=== PATIENT | male | born 1935 | race Caucasian/White ===

== ENCOUNTER 2018-03-30 09:01 | Inpatient (IN) | payer OTHER ==
[2018-03-30 09:09] VITALS: BMI 33.3
--- NOTE | 2018-03-30 09:33 | PDOC ---
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 Marie. The patient states he has been seeing his bunch maker hand periodically after his amputations for complaints of pain and during a recent appointment had an MRI ordered which eventually revealed soft tissue swelling of the 1st metatarsal with small subchondral cystic focus with edema of the marrow consistent for osteomyelitis. The patient denies chest pain, shortness of breath, headache and dizziness. The patient denies fever, chills, nausea, vomit, diarrhea and constipation. The patient denies dysuria, frequency, urgency and hematuria. Allergies: penicillins Past surgical history: right toe amputation 1-3 Social history: denies toxic habits PCP - Dr. Jac Jerry Text Transcriber: Dr. Marie <Evangelina Vasques - Last Filed: 03/30/18 13:00> - General Chief Complaint: Wound Stated Complaint: SENT BY PCP Time Seen by Provider: 03/30/18 09:31 Past History <Dinorah Page - Last Filed: 03/30/18 11:53> - Past Medical History Anemia: No Asthma: No Cancer: No Cardiac Disorders: No CVA: No COPD: No CHF: No Dementia: No Diabetes: No GI Disorders: No Disorders: No HTN: Yes Hypercholesterolemia: Yes Liver Disease: No Seizures: No Thyroid Disease: No - Surgical History Abdominal Surgery: No Appendectomy: No Cardiac Surgery: No Cholecystectomy: No Lung Surgery: No Neurologic Surgery: No Orthopedic Surgery: No - Suicide/Smoking/Psychosocial Hx Smoking History: Never smoked Have you smoked in the past 12 months: No <Evangelina Vasques - Last Filed: 03/30/18 13:00> - Past Medical History Allergies/Adverse Reactions: Allergies Allergy/AdvReac Type Severity Reaction Status Date / Time Penicillins Allergy Verified 03/30/18 09:08 Home Medications: Ambulatory Orders Aspirin [ASA -] 81 mg PO DAILY 03/30/18 Brimonidine Tartrate/Timolol [Combigan Eye Drops] 1 drop OU BID 03/30/18 Valsartan 160 mg PO DAILY 03/30/18 Review of Systems - Review of Systems Able to Perform ROS?: Yes Comments:: 03/30/18 10:21 Constitutional: no fevers or chills. HEENT: no headache or dizziness. CVS: no cp or syncope. Resp: no sob. Abdomen: no abdominal pain, nausea or vomiting. MUSCULOSKELETAL: (+) right foot pain and infection. No joint swelling. No neck or back pain. SKIN: no discharge, no rash. +chronic wound/pain and erythema over right forefoot. Hematologic: no easy bruising/bleeding. NEUROLOGIC: No weakness, numbness or tingling. All other systems reviewed and negative, or as documented in HPI. <Evangelina Vasques - Last Filed: 03/30/18 13:00> *Physical Exam - Vital Signs Last Vital Signs Temp Pulse Resp BP Pulse Ox 98.4 F 76 18 151/93 95 03/30/18 09:06 03/30/18 09:06 03/30/18 09:06 03/30/18 09:06 03/30/18 09:06 <Dinorah Page - Last Filed: 03/30/18 11:53> - Vital Signs Last Vital Signs Temp Pulse Resp BP Pulse Ox 98.4 F 76 18 151/93 95 03/30/18 09:06 03/30/18 09:06 03/30/18 09:06 03/30/18 09:06 03/30/18 09:06 - Physical Exam Comments: 03/30/18 10:20 General: Well appearing, awake and alert, NAD. HEENT: NCAT, PERRL, EOMI, clear conjunctiva, anicteric, moist mucus membranes, clear oropharynx, no oral lesions.. Neck: neck supple, FROM Resp: CTAB, normal and even respirations, no respiratory distress CVS: RRR, no murmurs, 2+ peripheral pulses throughout, no peripheral edema Abdomen: soft, NTND, no peritoneal signs. Back: nontender, normal inspection and ROM MSK: (+) right forefoot amputation of digits #1-3. Callus x2 to dorsal aspect of right foot without drainage.. Erythematous, nontender, no increased warmth. no edema, MCKEON x4, ROM intact. No clubbing or cyanosis. normal bulk and tone. Neuro: alert, oriented appropriately; no focal neurologic deficits. SILT, 5/5 distal and prox strength in all extrem. 5/5 plantar and dorsiflexion. Skin: warm and well perfused, 2+ DP pulses. cap refill <2 sec, normal color. + mild erythema to distal right forefoot, nontender and no drainage. <Evangelina Vasques - Last Filed: 03/30/18 13:00> Heart Score/ECG Review - ECG Impressions Comment:: 03/30/18 11:00 EKG normal sinus rhythm, no interval abnormalities, narrow QRS, ST and T wave segments and morphology normal. Nonspecific T wave abnormalities in III, no contiguous lead changes <Evangelina Vasques - Last Filed: 03/30/18 13:00> ED Treatment Course - LABORATORY CBC & Chemistry Diagram: 03/30/18 10:09 03/30/18 10:05 - ADDITIONAL ORDERS Additional order review: Laboratory Results 03/30/18 03/30/18 10:05 10:05 PT with INR 11.80 INR 1.04 Sodium 139 Potassium 4.1 Chloride 105 Carbon Dioxide 27 Anion Gap 7 L BUN 16 Creatinine 0.8 Creat Clearance w eGFR > 60 Random Glucose 98 Calcium 8.9 Total Bilirubin 0.9 AST 13 L ALT 21 Alkaline Phosphatase 88 C-Reactive Protein 0.6 H Total Protein 6.7 Albumin 3.6 03/30/18 10:09 RBC 5.30 MCV 91.4 MCHC 33.6 RDW 14.3 MPV 8.4 Neutrophils % 72.8 Lymphocytes % 15.1 D Monocytes % 8.9 Eosinophils % 2.7 Basophils % 0.5 - Medications Given in the ED: ED Medications Discontinued Medications Generic Name Dose Route Start Last Admin Trade Name Freq PRN Reason Stop Dose Admin Cefepime HCl 2 gm in 50 mls @ 100 mls/hr 03/30/18 10:02 03/30/18 10:21 Maxipime 2gm Ivpb (Premix) IVPB 03/30/18 10:31 100 mls/hr ONCE ONE Administration Protocol Vancomycin HCl 2,000 mg/ 250 mls @ 250 mls/2 hr 03/30/18 10:03 03/30/18 11:15 Dextrose IVPB 03/30/18 12:02 Not Given ONCE ONE Protocol <Dinorah Page - Last Filed: 03/30/18 11:53> - LABORATORY CBC & Chemistry Diagram: 03/30/18 10:09 03/30/18 10:05 <Evangelina Vasques - Last Filed: 03/30/18 13:00> Medical Decision Making - Medical Decision Making 03/30/18 09:32 I, Evangelina Vasques MD, attest that this document has been prepared under my direction and personally reviewed by me in its entirety. I further attest, that it accurately reflects all work, treatment, procedures and medical decision -making performed by me. HERNANDEZ 82 YOM with HTN, constipation, prostate ca and chronic incontinence, Right forefoot amputation x many years ago presenting with right foot/toe osteomyelitis; primary bunch maker hand Dr. Marie. +intermittent foot pain x long time, no fever or chills or purulence/drainage. Vital signs reviewed, wnl. Well appearing and no pain/asymptomatic. Infection Plan: CBC, CMP, coags, blood cx, ECG, CXR, XR rt foot. IV abx cefepime 2g and vancomycin 2g for MRI diagnosis of osteomyelitis. Prior notes reviewed, including admissions, discharges and consultations. laboratory results and imaging reviewed, basic labs and lytes wnl, ESR/CRP pending, CRP normal which is reassuring. Cultures pending, will need bone biopsy per specialist as inpatient. EKG normal sinus rhythm, no interval abnormalities, narrow QRS, ST and T wave segments and morphology normal. Nonspecific T wave abnormalities in III, no contiguous lead changes Dispo: Admit to hospitalist for osteomyelitis, ID and podiatry consult as inpatient, started broad spec abx for osteomyelitis/foot cellulitis (cefepime/ vancomycin), narrow once bone cultures obtained. Inpatient podiatry/ID consultation. Discussed results and management plan with pt at bedside, agree with impression and plan. admit to Dr. Razo, discussed case and agree with plan 03/30/18 11:05 03/30/18 12:58 <Evangelina Vasques - Last Filed: 03/30/18 13:00> *DC/Admit/Observation/Transfer <Dinorah Page - Last Filed: 03/30/18 11:53> - Discharge Dispostion Decision to Admit order: Yes Decision to Admit order Date/Time: 03/30/18 11:04 Decision to Admit Order Category Date Time Status Decision to Admit to Hospital Routine Admission 03/30/18 10:23 Active <Evangelina Vasques - Last Filed: 03/30/18 13:00> Diagnosis at time of Disposition: Foot osteomyelitis, right - Discharge Dispostion Condition at time of disposition: Good
[2018-03-30] MEDS ORDERED: CEFEPIME HCL/D5W 2 GM/50 ML BAG IVPB ONE (10:02)
[2018-03-30] MEDS ORDERED: VANCOMYCIN 2,000 MG in DEXTROSE 5%-WATER - 250 ML IVPB ONE (10:03)
[2018-03-30] MEDS ORDERED: CEFEPIME 2 GM/100 ML BAG IVPB ONE (10:11)
[2018-03-30] MEDS ORDERED: VANCOMYCIN 2,000 MG in DEXTROSE 5%-WATER - 500 ML IVPB ONE (10:18)
[2018-03-30 10:25] LABS: BASO % 0.5 % (0-2.0); EOS % 2.7 % (0-4.5); HEMATOCRIT 48.4 % (35.4-49); HEMOGLOBIN 16.3 GM/dL (11.7-16.9); LYMPH % 15.1 % (8-40); MCH 30.7 pg (25.7-33.7); MCHC 33.6 g/dl (32.0-35.9); MEAN CELL VOLUME 91.4 fl (80-96); MEAN PLT VOLUME 8.4 fl (7.5-11.1); MONO % 8.9 % (3.8-10.2); NEUT % 72.8 % (42.8-82.8); PLATELET COUNT 180 K/MM3 (134-434); RDW 14.3 % (11.9-15.9); WHITE BLOOD COUNT 7.7 K/mm3 (4.0-10.0)
[2018-03-30 10:43] LABS: INR 1.04 (0.83-1.09); PROTHROMBIN TIME (PATIENT) 11.8 SEC (9.7-13.0)
[2018-03-30 10:45] LABS: CHLORIDE 105 mmol/L (98-107); POTASSIUM 4.1 mmol/L (3.5-5.1); SODIUM 139 mmol/L (136-145)
[2018-03-30 11:29] LABS: ALBUMIN 3.6 g/dl (3.4-5.0); ALK PHOS 88 U/L (45-117); ANION GAP 7 MMOL/L (8-16); BILIRUBIN,TOTAL 0.9 mg/dL (0.2-1); BLOOD UREA NITROGEN 16 mg/dL (7-18); CALCIUM 8.9 mg/dL (8.5-10.1); CO2 27 mmol/L (21-32); CREATININE 0.8 mg/dL (0.55-1.3); GLUCOSE,RANDOM 98 mg/dL (74-106); SGOT/AST 13 U/L (15-37); SGPT/ALT 21 U/L (13-61); TOT PROT 6.7 g/dl (6.4-8.2)
[2018-03-30] MEDS ORDERED: ERTAPENEM SODIUM 1 GM in SODIUM CHLORIDE 50 ML IVPB SCH (12:00)
--- NOTE | 2018-03-30 12:00 | CON.ID ---
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 patient got an mri done which showed osteomylittis and will need treatment for 4 - 6 weeks patient has amputation of the toes and is prone to develop callouses does not ahve any discharge but there seems to be a small collection denies fever or any other symptoms - History Source History Provided By: Patient Limitations to Obtaining History: No Limitations - Smoking History Smoking history: Never smoked Have you smoked in the past 12 months: No Home Medications - Allergies Allergies/Adverse Reactions: Allergies Allergy/AdvReac Type Severity Reaction Status Date / Time Penicillins Allergy Intermediate Rash Verified 03/30/18 14:26 - Home Medications Home Medications: Ambulatory Orders Aspirin [ASA -] 81 mg PO DAILY 03/30/18 Brimonidine Tartrate/Timolol [Combigan Eye Drops] 1 drop OU BID 03/30/18 Polyethylene Glycol 3350 [Miralax 119 gm Btl -] 17 gm PO HS 03/30/18 Valsartan 160 mg PO DAILY 03/30/18 Review of Systems - Review of Systems Constitutional: reports: No Symptoms Eyes: reports: No Symptoms HENT: reports: No Symptoms Neck: reports: No Symptoms Cardiovascular: reports: No Symptoms Respiratory: reports: No Symptoms Gastrointestinal: reports: No Symptoms Musculoskeletal: reports: Other (amputation of the toes) Integumentary: reports: No Symptoms Neurological: reports: No Symptoms Endocrine: reports: No Symptoms Hematology/Lymphatic: reports: No Symptoms Psychiatric: reports: No Symptoms Physical Exam Vital Signs: Vital Signs Temperature 98.9 F 03/30/18 11:54 Pulse Rate 68 03/30/18 11:54 Respiratory Rate 18 03/30/18 11:54 Blood Pressure 133/89 03/30/18 11:54 O2 Sat by Pulse Oximetry (%) 98 03/30/18 11:54 Constitutional: Yes: Well Nourished, No Distress, Calm Eyes: Yes: Conjunctiva Clear HENT: Yes: Atraumatic Neck: Yes: Supple, Trachea Midline Cardiovascular: Yes: Regular Rate and Rhythm Respiratory: Yes: Regular, CTA Bilaterally Gastrointestinal: Yes: Normal Bowel Sounds, Soft Musculoskeletal: Yes: WNL Extremities: Yes: Other (rt toe amputations) Wound/Incision: Yes: Clean/Dry Neurological: Yes: Alert, Oriented Labs: CBC, BMP 03/30/18 10:09 03/30/18 10:05 Imaging - Results MRI: Report Reviewed Assessment/Plan Problem List - Problems (1) Foot osteomyelitis, right Code(s): M86.9 - OSTEOMYELITIS, UNSPECIFIED (2) HTN (hypertension) Code(s): I10 - ESSENTIAL (PRIMARY) HYPERTENSION patient received cefepime which he tolerated plan will start patient on ceftriaxone from tomorrow will see how patient tolerates it then will decide further plan will check markers
--- NOTE | 2018-03-30 12:56 | EKG ---
Test Reason : Blood Pressure : / mmHG Vent. Rate : 064 BPM Atrial Rate : 064 BPM P-R Int : 168 ms QRS Dur : 110 ms QT Int : 410 ms P-R-T Axes : 016 -25 032 degrees QTc Int : 422 ms NORMAL SINUS RHYTHM INCOMPLETE RIGHT BUNDLE BRANCH BLOCK CANNOT RULE OUT INFERIOR INFARCT , AGE UNDETERMINED ABNORMAL ECG NO PREVIOUS ECGS AVAILABLE Confirmed by SOCORRO KAPOOR MD ([id number]) on 03/30/2018 12:56:15 PM Referred By: Confirmed By:SOCORRO KAPOOR MD
[2018-03-30 14:23] LABS: ERYTHROCYTE SEDIMENTATION RATE 2 mm/hr (0-20)
--- NOTE | 2018-03-30 15:47 | HP ---
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 Marie. The patient states he has been seeing his lead retail sales associate periodically after his amputations for complaints of pain and during a recent appointment had an MRI ordered which eventually revealed soft tissue swelling of the 1st metatarsal with small subchondral cystic focus with edema of the marrow consistent for osteomyelitis. - Past Medical History Cardiovascular: Yes: HTN Heme/Onc: Yes: Other (prostate ca) - Advance Directives Advance Directives: Yes: Living Will, Health Care Proxy, DNR - Smoking History Smoking history: Never smoked Have you smoked in the past 12 months: No - Alcohol/Substance Use Hx Alcohol Use: Yes (Occ) Home Medications - Allergies Allergies/Adverse Reactions: Allergies Allergy/AdvReac Type Severity Reaction Status Date / Time Penicillins Allergy Intermediate Rash Verified 03/30/18 14:26 - Home Medications Home Medications: Ambulatory Orders Aspirin [ASA -] 81 mg PO DAILY 03/30/18 Brimonidine Tartrate/Timolol [Combigan 0.2%-0.5% Eye Drops] 1 drop OU BID Polyethylene Glycol 3350 [Miralax 119 gm Btl -] 17 gm PO HS 03/30/18 Valsartan 160 mg PO DAILY 03/30/18 Ceftriaxone [Rocephin -] 2 gm IVPB DAILY #20 vial MDD 1 04/01/18 Physical Examination Vital Signs: Vital Signs Temperature 98 F 03/30/18 14:13 Pulse Rate 72 03/30/18 14:13 Respiratory Rate 18 03/30/18 14:13 Blood Pressure 155/86 03/30/18 14:13 O2 Sat by Pulse Oximetry (%) 98 03/30/18 11:54 Constitutional: Yes: No Distress HENT: Yes: Atraumatic Neck: Yes: Supple Cardiovascular: Yes: Regular Rate and Rhythm Respiratory: Yes: CTA Bilaterally Gastrointestinal: Yes: Normal Bowel Sounds Extremities: Yes: Other (r foot osteo) Edema: No Peripheral Pulses WNL: Yes Neurological: Yes: Alert, Oriented Labs: CBC, BMP 03/30/18 10:09 03/30/18 10:05 Problem List - Problems (1) Foot osteomyelitis, right Assessment/Plan: iv abx id consult podiatry consult Code(s): M86.9 - OSTEOMYELITIS, UNSPECIFIED (2) HTN (hypertension) Assessment/Plan: on meds stable Code(s): I10 - ESSENTIAL (PRIMARY) HYPERTENSION Assessment/Plan Laboratory Tests 03/30/18 03/30/18 03/30/18 10:05 10:05 10:09 WBC 7.7 RBC 5.30 Hgb 16.3 Hct 48.4 MCV 91.4 MCH 30.7 MCHC 33.6 RDW 14.3 Plt Count 180 MPV 8.4 Absolute Neuts (auto) 5.6 Neutrophils % 72.8 Lymphocytes % 15.1 D Monocytes % 8.9 Eosinophils % 2.7 Basophils % 0.5 Nucleated RBC % 0 ESR 2 PT with INR 11.80 INR 1.04 Sodium 139 Potassium 4.1 Chloride 105 Carbon Dioxide 27 Anion Gap 7 L BUN 16 Creatinine 0.8 Creat Clearance w eGFR > 60 Random Glucose 98 Calcium 8.9 Total Bilirubin 0.9 AST 13 L ALT 21 Alkaline Phosphatase 88 C-Reactive Protein 0.6 H Total Protein 6.7 Albumin 3.6 Active Medications Generic Name Dose Route Start Last Admin Trade Name Freq PRN Reason Stop Dose Admin Aspirin 81 mg 03/31/18 10:00 04/01/18 09:44 Asa - PO 81 mg DAILY NIKO Administration Brimonidine Tartrate 1 drop 03/30/18 22:00 04/01/18 10:08 Alphagan 0.2% - OU 1 drop BID NIKO Administration Dorzolamide HCl 1 drop 03/30/18 22:00 04/01/18 10:08 Trusopt 2% OU 1 drop BID NIKO Administration Heparin Sodium (Porcine) 5,000 unit 03/30/18 22:00 04/01/18 10:10 Heparin - SQ Not Given BID NIKO IV Flush 8 ml 03/31/18 19:30 Picc Line Flush IVPUSH PRN PRN Protocol Ceftriaxone Sodium 2 gm/ 100 mls @ 100 mls/hr 03/31/18 10:00 04/01/18 09:44 Dextrose IVPB 100 mls/hr DAILY NIKO Administration Protocol Polyethylene Glycol 17 gm 03/30/18 22:00 03/31/18 21:16 Miralax (For Daily Use) - PO 17 grams HS NIKO Administration Valsartan 160 mg 03/31/18 10:00 04/01/18 09:44 Diovan - PO 160 mg DAILY NIKO Administration
--- NOTE | 2018-03-30 18:57 | CONSULT ---
Consult Consult Specialty:: podiatry Reason for Consultation:: Osteomyelitis/pretrophic wounds - History of Present Illness Chief Complaint: Osteomyelitis History of Present Illness: Previous wounds right foot. Bone now infected. Confirmed by MRI. - History Source History Provided By: Patient, Medical Record Limitations to Obtaining History: No Limitations - Past Medical History Cardio/Vascular: Yes: HTN Musculoskeletal: Yes: Other (non diabetic amputation right foot) Dermatology: Yes: Other (pretrophic wounds right foot) - Alcohol/Substance Use Hx Alcohol Use: Yes (Occ) - Smoking History Smoking history: Never smoked Have you smoked in the past 12 months: No Home Medications - Allergies Allergies/Adverse Reactions: Allergies Allergy/AdvReac Type Severity Reaction Status Date / Time Penicillins Allergy Intermediate Rash Verified 03/30/18 14:26 - Home Medications Home Medications: Ambulatory Orders Aspirin [ASA -] 81 mg PO DAILY 03/30/18 Brimonidine Tartrate/Timolol [Combigan Eye Drops] 1 drop OU BID 03/30/18 Polyethylene Glycol 3350 [Miralax 119 gm Btl -] 17 gm PO HS 03/30/18 Valsartan 160 mg PO DAILY 03/30/18 Review of Systems - Review of Systems Musculoskeletal: reports: Other (non diabetic amputation right foot) Physical Exam Vital Signs: Vital Signs Temperature 98.5 F 03/30/18 17:10 Pulse Rate 64 03/30/18 17:10 Respiratory Rate 20 03/30/18 17:10 Blood Pressure 144/77 03/30/18 17:10 O2 Sat by Pulse Oximetry (%) 98 03/30/18 11:54 Wound/Incision: Yes: Other (pretrophic wounds right foot x 2) Labs: CBC, BMP 03/30/18 10:09 03/30/18 10:05 Imaging - Results MRI: Image Reviewed (osteomyelitis) Problem List - Problems (1) Foot osteomyelitis, right Assessment/Plan: Osteomyelitis Patient here to have PICC line and bed bug exterminator antibiotics. No dressing required right foot. Post op shoe right foot. Discussed with ID. Code(s): M86.9 - OSTEOMYELITIS, UNSPECIFIED
[2018-03-30] MEDS ORDERED: PT OWN MED DRAWER 7, Y5N ONE (21:01)
[2018-03-30] MEDS: DORZOLAMIDE 2% HCL OPHTHALMIC SOLUTION 10 ML BOTTLE OU SCH (21:04)
[2018-03-30] MEDS: HEPARIN NA (PORCINE) 5,000 UNITS/ML 1ML VIAL SQ SCH (21:05)
[2018-03-30] MEDS: BRIMONIDINE TARTRATE 0.2% OPHTHALMIC 5 ML BOTTLE OU SCH (21:08)
[2018-03-30] MEDS: POLYETHYLENE GLYCOL 3350 119 GM BTL PO SCH (21:10)
[2018-03-30] MEDS ORDERED: PATIENT'S OWN MEDICATION (NON-FORMULARY) (Brimonidine Tartrate/Timolol [Combigan 0.2%-0.5% OU SCH (22:00)
[2018-03-31 06:47] LABS: BASO % 0.6 % (0-2.0); EOS % 3.2 % (0-4.5); HEMATOCRIT 47.3 % (35.4-49); HEMOGLOBIN 15.5 GM/dL (11.7-16.9); LYMPH % 22.4 % (8-40); MCH 29.9 pg (25.7-33.7); MCHC 32.8 g/dl (32.0-35.9); MEAN CELL VOLUME 91.2 fl (80-96); MONO % 9.4 % (3.8-10.2); NEUT % 64.4 % (42.8-82.8); PLATELET COUNT 150 K/MM3 (134-434); RBC 5.19 M/mm3 (4.00-5.60); RDW 14.3 % (11.9-15.9); WHITE BLOOD COUNT 6.4 K/mm3 (4.0-10.0)
[2018-03-31 07:37] LABS: ALBUMIN 3.1 g/dl (3.4-5.0); ANION GAP 5 MMOL/L (8-16); BLOOD UREA NITROGEN 15 mg/dL (7-18); CALCIUM 8.6 mg/dL (8.5-10.1); CHLORIDE 106 mmol/L (98-107); CO2 27 mmol/L (21-32); CREATININE 0.8 mg/dL (0.55-1.3); GLUCOSE,RANDOM 97 mg/dL (74-106); POTASSIUM 4.3 mmol/L (3.5-5.1); SGOT/AST 12 U/L (15-37); SGPT/ALT 18 U/L (13-61); SODIUM 138 mmol/L (136-145)
[2018-03-31 07:38] LABS: ALK PHOS 78 U/L (45-117); BILIRUBIN,TOTAL 0.8 mg/dL (0.2-1)
--- NOTE | 2018-03-31 08:53 | PN ---
Progress Note, Physician History of Present Illness: stable no new issues - Current Medication List Current Medications: Active Medications Aspirin (Asa -) 81 mg PO DAILY [facility] Brimonidine Tartrate (Alphagan 0.2% -) 1 drop OU BID [facility] Last Admin: 03/30/18 21:08 Dose: 1 drop Dorzolamide HCl (Trusopt 2%) 1 drop OU BID [facility] Last Admin: 03/30/18 21:04 Dose: 1 drop Heparin Sodium (Porcine) (Heparin -) 5,000 unit SQ BID [facility] Last Admin: 03/30/18 21:05 Dose: 5,000 unit Ceftriaxone Sodium (Ceftriaxone 2 Gm-D5w Bag) 2 gm in 50 mls @ 100 mls/hr IVPB DAILY [facility]; Protocol Polyethylene Glycol (Miralax (For Daily Use) -) 17 gm PO HS [facility] Last Admin: 03/30/18 21:10 Dose: 17 grams Valsartan (Diovan -) 160 mg PO DAILY [facility] - Objective Vital Signs: Vital Signs Temperature 98 F 03/31/18 06:00 Pulse Rate 69 03/31/18 06:00 Respiratory Rate 20 03/31/18 06:00 Blood Pressure 126/88 03/31/18 06:00 O2 Sat by Pulse Oximetry (%) 95 03/30/18 21:00 Constitutional: Yes: No Distress, Calm Cardiovascular: Yes: Regular Rate and Rhythm Respiratory: Yes: Regular, CTA Bilaterally Gastrointestinal: Yes: Normal Bowel Sounds, Soft Musculoskeletal: Yes: WNL Extremities: Yes: Other Neurological: Yes: Alert, Oriented Psychiatric: Yes: Alert, Oriented Labs: CBC, BMP 03/31/18 06:30 03/31/18 06:30 INR, PTT INR 1.04 (0.83-1.09) 03/30/18 10:05 Assessment/Plan Problem List - Problems (1) Foot osteomyelitis, right Code(s): M86.9 - OSTEOMYELITIS, UNSPECIFIED (2) HTN (hypertension) Code(s): I10 - ESSENTIAL (PRIMARY) HYPERTENSION patient received cefepime which he tolerated plan will start ceftriaxone rest continue current mgmt
[2018-03-31] MEDS ORDERED: PT OWN MED DRAWER 7, Y5N ONE ×3 (09:05→21:31)
[2018-03-31] MEDS ORDERED: DEXTROSE 5%-WATER 100 ML IVPB ONE (09:06)
[2018-03-31] MEDS: BRIMONIDINE TARTRATE 0.2% OPHTHALMIC 5 ML BOTTLE OU SCH ×2 (09:11→21:16)
[2018-03-31] MEDS: VALSARTAN 160 MG TABLET (UD) PO SCH (09:12)
[2018-03-31] MEDS: ASPIRIN 81 MG CHEWABLE TABLETS PO SCH (09:12)
[2018-03-31] MEDS: HEPARIN NA (PORCINE) 5,000 UNITS/ML 1ML VIAL SQ SCH ×2 (09:12→21:16)
[2018-03-31] MEDS: CEFTRIAXONE 2 GM in DEXTROSE 5%-WATER 100 ML IVPB SCH (09:12)
[2018-03-31] MEDS: DORZOLAMIDE 2% HCL OPHTHALMIC SOLUTION 10 ML BOTTLE OU SCH ×2 (09:13→21:16)
--- NOTE | 2018-03-31 13:18 | PN ---
Progress Note, Physician - Current Medication List Current Medications: Active Medications Aspirin (Asa -) 81 mg PO DAILY [facility] Last Admin: 03/31/18 09:12 Dose: 81 mg Brimonidine Tartrate (Alphagan 0.2% -) 1 drop OU BID [facility] Last Admin: 03/31/18 09:11 Dose: 1 drop Dorzolamide HCl (Trusopt 2%) 1 drop OU BID [facility] Last Admin: 03/31/18 09:13 Dose: 1 drop Heparin Sodium (Porcine) (Heparin -) 5,000 unit SQ BID [facility] Last Admin: 03/31/18 09:12 Dose: 5,000 unit Ceftriaxone Sodium 2 gm/ (Dextrose) 100 mls @ 100 mls/hr IVPB DAILY [facility]; Protocol Last Admin: 03/31/18 09:12 Dose: 100 mls/hr Polyethylene Glycol (Miralax (For Daily Use) -) 17 gm PO HS [facility] Last Admin: 03/30/18 21:10 Dose: 17 grams Valsartan (Diovan -) 160 mg PO DAILY [facility] Last Admin: 03/31/18 09:12 Dose: 160 mg - Objective Vital Signs: Vital Signs Temperature 97.8 F 03/31/18 08:57 Pulse Rate 66 03/31/18 08:57 Respiratory Rate 20 03/31/18 08:57 Blood Pressure 148/84 03/31/18 08:57 O2 Sat by Pulse Oximetry (%) 97 03/31/18 09:00 Constitutional: Yes: No Distress HENT: Yes: Atraumatic Neck: Yes: Supple Cardiovascular: Yes: Regular Rate and Rhythm Respiratory: Yes: CTA Bilaterally Gastrointestinal: Yes: Normal Bowel Sounds Extremities: Yes: Other (R foot osteo) Neurological: Yes: Alert, Oriented Labs: CBC, BMP 03/31/18 06:30 03/31/18 06:30 INR, PTT INR 1.04 (0.83-1.09) 03/30/18 10:05 Problem List - Problems (1) Foot osteomyelitis, right Assessment/Plan: iv abx id consult podiatry consult Code(s): M86.9 - OSTEOMYELITIS, UNSPECIFIED (2) HTN (hypertension) Assessment/Plan: on meds stable Code(s): I10 - ESSENTIAL (PRIMARY) HYPERTENSION
[2018-03-31] MEDS ORDERED: PICC LINE 8 ML FLUSH PROTOCOL IVPUSH PRN (19:30)
[2018-03-31] MEDS: POLYETHYLENE GLYCOL 3350 119 GM BTL PO SCH (21:16)
--- NOTE | 2018-03-31 23:05 | PN ---
Progress Note (short form) - Note Progress Note: fuv right foot. Awaiting picc line. +closed pretrophic wounds right, pretrophic wounds om will follow till dc. discussed with dr. erickson antibiotic decision. Problem List - Problems (1) Foot osteomyelitis, right Code(s): M86.9 - OSTEOMYELITIS, UNSPECIFIED
--- NOTE | 2018-04-01 08:02 | PN ---
Progress Note, Physician History of Present Illness: doing well no issues - Current Medication List Current Medications: Active Medications Aspirin (Asa -) 81 mg PO DAILY [facility] Last Admin: 03/31/18 09:12 Dose: 81 mg Brimonidine Tartrate (Alphagan 0.2% -) 1 drop OU BID [facility] Last Admin: 03/31/18 21:16 Dose: 1 drop Dorzolamide HCl (Trusopt 2%) 1 drop OU BID [facility] Last Admin: 03/31/18 21:16 Dose: 1 drop Heparin Sodium (Porcine) (Heparin -) 5,000 unit SQ BID [facility] Last Admin: 03/31/18 21:16 Dose: 5,000 unit IV Flush (Picc Line Flush) 8 ml IVPUSH PRN PRN PRN Reason: Protocol Ceftriaxone Sodium 2 gm/ (Dextrose) 100 mls @ 100 mls/hr IVPB DAILY [facility]; Protocol Last Admin: 03/31/18 09:12 Dose: 100 mls/hr Polyethylene Glycol (Miralax (For Daily Use) -) 17 gm PO HS [facility] Last Admin: 03/31/18 21:16 Dose: 17 grams Valsartan (Diovan -) 160 mg PO DAILY [facility] Last Admin: 03/31/18 09:12 Dose: 160 mg - Objective Vital Signs: Vital Signs Temperature 97.9 F 04/01/18 06:00 Pulse Rate 64 04/01/18 06:00 Respiratory Rate 18 04/01/18 06:00 Blood Pressure 150/78 04/01/18 06:00 O2 Sat by Pulse Oximetry (%) 97 03/31/18 21:35 Constitutional: Yes: No Distress, Calm Cardiovascular: Yes: Regular Rate and Rhythm Respiratory: Yes: Regular, CTA Bilaterally Gastrointestinal: Yes: Normal Bowel Sounds, Soft Musculoskeletal: Yes: WNL Extremities: Yes: Other Wound/Incision: Yes: Dressing Dry and Intact Neurological: Yes: Alert, Oriented Psychiatric: Yes: Alert, Oriented Labs: CBC, BMP 03/31/18 06:30 03/31/18 06:30 INR, PTT INR 1.04 (0.83-1.09) 03/30/18 10:05 Assessment/Plan Problem List - Problems (1) Foot osteomyelitis, right Code(s): M86.9 - OSTEOMYELITIS, UNSPECIFIED (2) HTN (hypertension) Code(s): I10 - ESSENTIAL (PRIMARY) HYPERTENSION tolerated ceftriaxone plan continue ceftriaxone 2 gm daily for 5 more weeks rest as per the team
[2018-04-01] MEDS ORDERED: DEXTROSE 5%-WATER 100 ML IVPB ONE (09:39)
[2018-04-01] MEDS: CEFTRIAXONE 2 GM in DEXTROSE 5%-WATER 100 ML IVPB SCH (09:44)
[2018-04-01] MEDS: ASPIRIN 81 MG CHEWABLE TABLETS PO SCH (09:44)
[2018-04-01] MEDS: VALSARTAN 160 MG TABLET (UD) PO SCH (09:44)
[2018-04-01] MEDS: DORZOLAMIDE 2% HCL OPHTHALMIC SOLUTION 10 ML BOTTLE OU SCH ×2 (10:08→21:26)
[2018-04-01] MEDS: BRIMONIDINE TARTRATE 0.2% OPHTHALMIC 5 ML BOTTLE OU SCH ×2 (10:08→21:26)
[2018-04-01] MEDS: HEPARIN NA (PORCINE) 5,000 UNITS/ML 1ML VIAL SQ SCH ×3 (10:10→21:35)
--- NOTE | 2018-04-01 15:28 | PN ---
Progress Note, Physician History of Present Illness: doing well - Current Medication List Current Medications: Active Medications Aspirin (Asa -) 81 mg PO DAILY [facility] Last Admin: 04/01/18 09:44 Dose: 81 mg Brimonidine Tartrate (Alphagan 0.2% -) 1 drop OU BID [facility] Last Admin: 04/01/18 10:08 Dose: 1 drop Dorzolamide HCl (Trusopt 2%) 1 drop OU BID [facility] Last Admin: 04/01/18 10:08 Dose: 1 drop Heparin Sodium (Porcine) (Heparin -) 5,000 unit SQ BID [facility] Last Admin: 04/01/18 10:10 Dose: Not Given IV Flush (Picc Line Flush) 8 ml IVPUSH PRN PRN PRN Reason: Protocol Ceftriaxone Sodium 2 gm/ (Dextrose) 100 mls @ 100 mls/hr IVPB DAILY [facility]; Protocol Last Admin: 04/01/18 09:44 Dose: 100 mls/hr Polyethylene Glycol (Miralax (For Daily Use) -) 17 gm PO HS [facility] Last Admin: 03/31/18 21:16 Dose: 17 grams Valsartan (Diovan -) 160 mg PO DAILY [facility] Last Admin: 04/01/18 09:44 Dose: 160 mg - Objective Vital Signs: Vital Signs Temperature 98.1 F 04/01/18 14:28 Pulse Rate 71 04/01/18 14:28 Respiratory Rate 16 04/01/18 14:28 Blood Pressure 137/58 L 04/01/18 14:28 O2 Sat by Pulse Oximetry (%) 97 03/31/18 21:35 Constitutional: Yes: No Distress Eyes: Yes: Conjunctiva Clear HENT: Yes: Atraumatic Cardiovascular: Yes: Regular Rate and Rhythm Respiratory: Yes: CTA Bilaterally Gastrointestinal: Yes: Normal Bowel Sounds Extremities: Yes: Other (R foot osteo) Neurological: Yes: Alert, Oriented Labs: CBC, BMP 03/31/18 06:30 03/31/18 06:30 INR, PTT INR 1.04 (0.83-1.09) 03/30/18 10:05 Problem List - Problems (1) Foot osteomyelitis, right Assessment/Plan: iv abx id consult podiatry consult Code(s): M86.9 - OSTEOMYELITIS, UNSPECIFIED (2) HTN (hypertension) Assessment/Plan: on meds stable Code(s): I10 - ESSENTIAL (PRIMARY) HYPERTENSION
--- NOTE | 2018-04-01 15:28 | DS ---
Physical Examination Vital Signs: Vital Signs Temperature 98.1 F 04/01/18 14:28 Pulse Rate 71 04/01/18 14:28 Respiratory Rate 16 04/01/18 14:28 Blood Pressure 137/58 L 04/01/18 14:28 O2 Sat by Pulse Oximetry (%) 97 03/31/18 21:35 Labs: CBC, BMP 03/31/18 06:30 03/31/18 06:30 Discharge Summary Reason For Visit: OSTEOMYELITIS Current Active Problems Foot osteomyelitis, right (Acute) HTN (hypertension) (Acute) Condition: Good - Instructions Referrals: ON STAFF,NOT [Primary Care Provider] - - Home Medications Comprehensive Discharge Medication List: Ambulatory Orders Aspirin [ASA -] 81 mg PO DAILY 03/30/18 Brimonidine Tartrate/Timolol [Combigan 0.2%-0.5% Eye Drops] 1 drop OU BID Polyethylene Glycol 3350 [Miralax 119 gm Btl -] 17 gm PO HS 03/30/18 Valsartan 160 mg PO DAILY 03/30/18 Ceftriaxone [Rocephin -] 2 gm IVPB DAILY #20 vial MDD 1 04/01/18 [facility]
[2018-04-01] MEDS ORDERED: PT OWN MED DRAWER 7, Y5N ONE (21:11)
[2018-04-01] MEDS: POLYETHYLENE GLYCOL 3350 119 GM BTL PO SCH (21:26)
[2018-04-02] MEDS ORDERED: INSULIN (NOVOLOG) ASPART 100 UNITS/ML 10ML VIAL ONE (08:22)
[2018-04-02] MEDS ORDERED: INSULIN (LEVEMIR) 100 UNITS/ML UNITS SQ ONE (08:23)
--- NOTE | 2018-04-02 09:20 | PN ---
Progress Note, Physician History of Present Illness: stable doing well no issues - Current Medication List Current Medications: Active Medications Aspirin (Asa -) 81 mg PO DAILY [facility] Last Admin: 04/01/18 09:44 Dose: 81 mg Brimonidine Tartrate (Alphagan 0.2% -) 1 drop OU BID [facility] Last Admin: 04/01/18 21:26 Dose: 1 drop Dorzolamide HCl (Trusopt 2%) 1 drop OU BID [facility] Last Admin: 04/01/18 21:26 Dose: 1 drop Heparin Sodium (Porcine) (Heparin -) 5,000 unit SQ BID [facility] Last Admin: 04/01/18 21:35 Dose: Not Given IV Flush (Picc Line Flush) 8 ml IVPUSH PRN PRN PRN Reason: Protocol Ceftriaxone Sodium 2 gm/ (Dextrose) 100 mls @ 100 mls/hr IVPB DAILY [facility]; Protocol Last Admin: 04/01/18 09:44 Dose: 100 mls/hr Polyethylene Glycol (Miralax (For Daily Use) -) 17 gm PO HS [facility] Last Admin: 04/01/18 21:26 Dose: 17 grams Valsartan (Diovan -) 160 mg PO DAILY [facility] Last Admin: 04/01/18 09:44 Dose: 160 mg - Objective Vital Signs: Vital Signs Temperature 97.9 F 04/02/18 06:28 Pulse Rate 71 04/02/18 06:28 Respiratory Rate 20 04/02/18 06:28 Blood Pressure 159/99 04/02/18 06:28 O2 Sat by Pulse Oximetry (%) 95 04/01/18 21:00 Constitutional: Yes: No Distress, Calm Cardiovascular: Yes: Regular Rate and Rhythm Respiratory: Yes: Regular, CTA Bilaterally Gastrointestinal: Yes: Normal Bowel Sounds, Soft Musculoskeletal: Yes: WNL Extremities: Yes: Other Wound/Incision: Yes: Dressing Dry and Intact Neurological: Yes: Alert, Oriented Psychiatric: Yes: Alert, Oriented Labs: CBC, BMP 03/31/18 06:30 03/31/18 06:30 INR, PTT INR 1.04 (0.83-1.09) 03/30/18 10:05 Assessment/Plan Problem List - Problems (1) Foot osteomyelitis, right Code(s): M86.9 - OSTEOMYELITIS, UNSPECIFIED (2) HTN (hypertension) Code(s): I10 - ESSENTIAL (PRIMARY) HYPERTENSION tolerated ceftriaxone plan continue ceftriaxone 2 gm daily for 5 more weeks rest as per the team patient doing well wound care
[2018-04-02] MEDS ORDERED: DEXTROSE 5%-WATER 100 ML IVPB ONE (09:55)
[2018-04-02] MEDS: CEFTRIAXONE 2 GM in DEXTROSE 5%-WATER 100 ML IVPB SCH (10:00)
[2018-04-02] MEDS: BRIMONIDINE TARTRATE 0.2% OPHTHALMIC 5 ML BOTTLE OU SCH (10:00)
[2018-04-02] MEDS: ASPIRIN 81 MG CHEWABLE TABLETS PO SCH (10:00)
[2018-04-02] MEDS: VALSARTAN 160 MG TABLET (UD) PO SCH (10:00)
[2018-04-02] MEDS: HEPARIN NA (PORCINE) 5,000 UNITS/ML 1ML VIAL SQ SCH (10:01)
[2018-04-02] MEDS: DORZOLAMIDE 2% HCL OPHTHALMIC SOLUTION 10 ML BOTTLE OU SCH (10:01)
[2018-04-02 11:05] VITALS: BP 154/90; PULSE 76; TEMP 98.7
--- NOTE | 2018-04-02 15:32 | DS ---
Physical Examination Vital Signs: Vital Signs Temperature 98.7 F 04/02/18 09:00 Pulse Rate 76 04/02/18 09:00 Respiratory Rate 16 04/02/18 09:00 Blood Pressure 154/90 04/02/18 09:00 O2 Sat by Pulse Oximetry (%) 95 04/02/18 09:00 Labs: CBC, BMP 03/31/18 06:30 03/31/18 06:30 Discharge Summary Reason For Visit: OSTEOMYELITIS Condition: Good - Instructions Diet, Activity, Other Instructions: ACTIVITY TOLERATED LOW FAT LOW SODIUM DIET PICC LINE CARE FOOT ACRE MAY TAKE SHOWER IV AT FOR 5 WKS Referrals: ON STAFF,NOT [Primary Care Provider] - Disposition: HOME - Home Medications Comprehensive Discharge Medication List: Ambulatory Orders Aspirin [ASA -] 81 mg PO DAILY 03/30/18 Brimonidine Tartrate/Timolol [Combigan 0.2%-0.5% Eye Drops] 1 drop OU BID Polyethylene Glycol 3350 [Miralax 119 gm Btl -] 17 gm PO HS 03/30/18 Valsartan 160 mg PO DAILY 03/30/18 Ceftriaxone [Rocephin -] 2 gm IVPB DAILY #20 vial MDD 1 04/01/18
== END 2018-04-02 12:34 | disposition home or self-care (01) | DRG 541 ==
LOC: JER 09:01 → JERBED 10:23 → J8W 12:55
PROVIDERS: ADMIT Internal Medicine; ATTEND Internal Medicine
PROC: 02HV33Z Insertion of Infusion Device into Superior Vena Cava, Percutaneous Approach (ICD-10-PCS; principal; 2018-04-01)
DX: M86.9 Osteomyelitis, unspecified (principal); I10 Essential (primary) hypertension; C61 Malignant neoplasm of prostate
CPT/HCPCS: 36415; 36569; 73630-TC-RT-FY; 77001-TC-FY; 80053; 85025; 85610; 85651; 86140; 87040; 93005; 93010; 99283-25; C1751; J1644